=== PATIENT | female | born 1990 | race Caucasian/White ===

== ENCOUNTER 2017-10-08 13:03 | Emergency (ER) | payer OTHER ==
[~2017-10-08] VITALS: Ht 5619.3 cm; Wt 97.0 kg
[2017-10-08 15:21] LABS: URINE HCG NEGATIVE (NEG)
[2017-10-08] MEDS ORDERED: HYDR-3965 PO (15:38)
[2017-10-08] MEDS ORDERED: HYDROcodone/acetaminophen 5mg/325mg tablet PO ONE (15:40)
[2017-10-08 15:55] VITALS: BP 133/68
== END 2017-10-25 13:48 | disposition home or self-care (01) ==
LOC: ER 13:03
DX: S60.221A Contusion of right hand, initial encounter (principal); S20.211A Contusion of right front wall of thorax, initial encounter; G89.29 Other chronic pain; Z88.5 Allergy status to narcotic agent; V49.59XA Passenger injured in collision with other motor vehicles in traffic accident, initial encounter; Y93.89 Activity, other specified; Y92.410 Unspecified street and highway as the place of occurrence of the external cause; Y99.8 Other external cause status
CPT/HCPCS: 29125; 71020; 73130; 81025; 93005; 99285